=== PATIENT | female | born 1975 | race Caucasian/White ===

== ENCOUNTER 2018-02-04 18:58 | Emergency (ER) | payer MEDICAID ==
[~2018-02-04] VITALS: Ht 165.1 cm; Wt 82.5 kg
[2018-02-04 19:02] VITALS: Ht 165.1 cm; Wt 82.5 kg
[2018-02-04 21:25] LABS: CALCIUM 9.5 mg/dL (8.5-10.1); CARBON DIOXIDE 29.9 mmol/L (21-32); CHLORIDE SERUM 101 mmol/L (98-107); CREATININE SERUM 0.4 mg/dL (0.6-1.0); GFR1 > 60 mL/min; GLUCOSE SERUM 128 mg/dL (74-106); POTASSIUM SERUM 3.7 mmol/L (3.5-5.1); SODIUM SERUM 140 mmol/L (136-145)
[2018-02-04 21:35] LABS: ALBUMIN 3.9 g/dL (3.4-5.0); ALKALINE PHOSPHATASE 55 U/L (46-116); AST/SGOT 16 U/L (15-37); BILIRUBIN TOTAL 0.65 mg/dL (0.20-1.00); LIPASE 146 IU/L (73-393); TOTAL PROTEIN, SERUM 7.3 g/dL (6.4-8.2)
[2018-02-04 21:43] LABS: AMPHETAMINE QUAL UR NONE DETECTED (NEG <=1000)
[2018-02-04 21:46] LABS: BASOPHIL % 0.5 % (0-2); PLATELET COUNT 165 x10^3mcL (130-400); RED CELL DISTRIBUTION WIDTH 12.9 % (11.5-14.5)
[2018-02-04 21:52] LABS: ALT/SGPT 40 U/L (14-59)
[2018-02-05 00:27] VITALS: BP 132/76
== END 2018-02-05 00:27 | disposition home or self-care (01) ==
LOC: ED 18:58
PROVIDERS: Emergency Medicine
DX: E11.649 Type 2 diabetes mellitus with hypoglycemia without coma (principal); R07.9 Chest pain, unspecified; I10 Essential (primary) hypertension; E78.5 Hyperlipidemia, unspecified; Z90.710 Acquired absence of both cervix and uterus
CPT/HCPCS: 36415; 82962; 83880